=== PATIENT | female | born 1970 | race Caucasian/White ===

== ENCOUNTER → 2016-07-03 | Outpatient (CLI) | payer OTHER ==
--- NOTE | 2016-07-03 11:07 | DX ---
PA Chest and Right Ribs (4 views) History: Pain post trauma. A skin marker is placed over the symptomatic region in the lower lateral r ight chest. Findings: PA chest - No evidence of pneumothorax, pleural effusion or pulmonary contusion. The medias tinum is not widened. Right ribs, three views- Minimally displaced fractures of the anterolateral aspects of the right 8th 9th and 10th ribs are noted. Impression: Minimally displaced right rib fractures with no associated pneumothorax.
== END ==
LOC: BMCIMAGING 09:43
PROVIDERS: ATTEND Family Medicine
DX: S22.31XA Fracture of one rib, right side, initial encounter for closed fracture (principal); V00.321A Fall from snow-skis, initial encounter; Y93.23 Activity, snow (alpine) (downhill) skiing, snowboarding, sledding, tobogganing and snow tubing
CPT/HCPCS: 71101-PO

== ENCOUNTER → 2016-07-14 | Outpatient (CLI) | payer OTHER ==
--- NOTE | 2016-07-14 22:53 | DX ---
Chest, PA and Lateral July 14, 2016 HISTORY: Chest pain. History of minimally-displaced anterolateral right rib fracture. COMPARISON: July 03, 2016. FINDINGS: The heart size is within normal limits. The pulmonary vascularity appears normal. The santi ngs are clear. No evidence for a pleural effusion or pneumothorax. The minimally-displaced anterola teral right lower rib fractures are not as well seen on this study. No new bone lesion is visualized . Bilateral nipple shadows are visualized. IMPRESSION: No evidence for acute cardiopulmonary abnormality.
== END ==
LOC: EDSTATUS 12:15 → FIMAGING 21:48
PROVIDERS: ATTEND Physician Assistant
DX: R07.9 Chest pain, unspecified (principal)

== ENCOUNTER 2016-08-05 11:13 | Day surgery (SDC) | payer OTHER ==
[2016-08-05] MEDS ORDERED: cefOXitin SODIUM 1 GM in D5W 50 ML IV ONE (12:30)
[2016-08-05] MEDS ORDERED: METHYLENE BLUE 0.5% 50 MG/10 ML AMP ONE (13:07)
[2016-08-05] MEDS ORDERED: BUPIVACAINE/EPI 0.5% 30 ML SDV ONE (13:07)
[2016-08-05] MEDS ORDERED: MIDAZOLAM 2 MG/2 ML VIAL ONE (13:58)
[2016-08-05] MEDS ORDERED: fentaNYL 100 MCG/2 ML INJ ONE ×2 (14:01→15:37)
[2016-08-05] MEDS ORDERED: PROPOFOL 200 MG/20 ML VIAL ONE ×2 (14:01→15:37)
[2016-08-05] MEDS ORDERED: ROCURONIUM 50 MG/5 ML VIAL ONE (14:02)
[2016-08-05] MEDS ORDERED: LIDOCAINE 2% 5 ML SDV ONE (14:03)
[2016-08-05] MEDS ORDERED: DEXAMETHASONE 4 MG/ML VIAL ONE (14:08)
[2016-08-05] MEDS ORDERED: ONDANSETRON 4 MG/2 ML VIAL ONE ×2 (14:08→15:51)
[2016-08-05] MEDS ORDERED: epHEDrine SULFATE 10 MG/ML SYR ONE (16:07)
--- NOTE | 2016-08-05 20:41 | GOP ---
[f rep st] OPERATIVE REPORT DATE OF OPERATION: 08/05/2016 SURGEON: Robe Morales MD KIER PLEATER: IVY Paz ANESTHESIA: General endotracheal. ANESTHESIOLOGIST: Dr. Julio PREOPERATIVE DIAGNOSIS: Possible anal fissure and external hemorrhoids. POSTOPERATIVE DIAGNOSIS: Possible anal fissure and external hemorrhoids. PROCEDURE PERFORMED: Exam under anesthesia with hemorrhoidectomy and lateral internal sphincterotom y. FINDINGS: The patient was found to have 2 large, pedunculated [facility] had internal hemorrhoids at the 11 o'clock and 7 o'clock positions. The internal hemorrhoid at the 7 o'clock position was thrombosed. Her anal fissure was largely reepithelialized. h ESTIMATED BLOOD LOSS: Negligible. DESCRIPTION OF PROCEDURE: Patient taken to the operating room, where she received satisfactory gene ral endotracheal anesthesia by Dr. Julio, placed in lithotomy position, and prepped and draped in th e usual sterile fashion. The anus was infiltrated with 0.5% Marcaine and dilated to 3 fingerbreadths. Internal hemorrhoid at the 11 o'clock position was grasped and rubber band-ligated. External hemorrhoids at the 12 o'cloc k and 7 o'clock positions were completely excised with electrocautery. At the 7 o'clock position, t his incision extended into the anal canal, excising the internal component of the hemorrhoid, which was thrombosed. Both wounds were infiltrated with 0.5% Marcaine. Hemostasis was assured, and they were closed using running 3-0 chromic sutures. A short incision was made at the 9 o'clock position. Internal sphincter was grasped with an Allis c lamp and partially divided for three quarters of it fibers, creating a lateral internal sphincteroto my. That wound was closed with 4-0 chromic sutures as well. All wounds were infiltrated with 0.5% Marcaine. The wound was dressed. She was taken to [facility] in good condition. There were no complications. /[id number]/MODL
== END 2016-08-05 17:08 | disposition home health service (06) ==
LOC: FSGY 11:13
PROVIDERS: ATTEND Surgery
PROC: 0D8R0ZZ Division of Anal Sphincter, Open Approach (ICD-10-PCS; 2016-08-05)
PROC: 06BY0ZC Excision of Hemorrhoidal Plexus, Open Approach (ICD-10-PCS; principal; 2016-08-05 12:30)
PROC: 06LY3CC Occlusion of Hemorrhoidal Plexus with Extraluminal Device, Percutaneous Approach (ICD-10-PCS; 2016-08-05 12:30)
DX: K64.8 Other hemorrhoids (principal); K64.4 Residual hemorrhoidal skin tags; K62.89 Other specified diseases of anus and rectum
CPT/HCPCS: J0697; J1100; J2250; J2405; J2704; J3010; Q9968

== ENCOUNTER → 2017-03-20 | Outpatient (CLI) | payer OTHER | LOC: FIMAGING 14:31 | PROVIDERS: ATTEND Family Medicine | DX: Z12.31 Encounter for screening mammogram for malignant neoplasm of breast (principal) | CPT/HCPCS: G0202 ==

== ENCOUNTER → 2018-10-06 | Outpatient (CLI) | payer OTHER | LOC: FIMAGING 09:59 | PROVIDERS: ATTEND Internal Medicine | DX: Z12.31 Encounter for screening mammogram for malignant neoplasm of breast (principal) ==